=== PATIENT | female | born 1960 | race Caucasian/White ===

== ENCOUNTER 2021-09-19 19:21 | Emergency (ER) | payer MEDICAID, OTHER ==
[~2021-09-19] VITALS: Ht 157.5 cm; Wt 88.5 kg
--- NOTE | 2021-09-19 19:49 | NUR ---
pt in room 5a c/o right shoulder pain.
--- NOTE | 2021-09-19 19:55 | NUR ---
Dr Aviles in the room for MSE
[2021-09-19] MEDS ORDERED: OXYC-128 PO (20:11)
[2021-09-19 20:49] VITALS: BP 120/70
--- NOTE | 2021-09-19 20:49 | NUR ---
Patient discharged to home in stable condition. Written and verbal after care instructions given. Patient verbalizes understanding of instructions. Stressed follow up or return to ER for worsening s/s. pt ambulated with steady gait, denies pain.
== END 2021-09-19 20:58 | disposition home or self-care (01) ==
LOC: ER 19:35
DX: S40.011A Contusion of right shoulder, initial encounter (principal); S80.211A Abrasion, right knee, initial encounter; W01.0XXA Fall on same level from slipping, tripping and stumbling without subsequent striking against object, initial encounter; Y92.511 Restaurant or cafe as the place of occurrence of the external cause; Y99.0 Civilian activity done for income or pay; Z88.0 Allergy status to penicillin
CPT/HCPCS: 73030; A4663